=== PATIENT | female | born 1990 | race Caucasian/White ===

== ENCOUNTER 2016-08-29 00:42 | Emergency (ER) | payer OTHER ==
[~2016-08-29] VITALS: Ht 165.1 cm; Wt 54.5 kg
[~2016-08-29 00:42] MED LIST: BENADRYL25 M2; CLEOCIN HCL300 MG PO; FERROUS SU325 MG/TAB PO; LAMICTAL 25MG T25 MG PO; LAMICTAL200 MG PO; LOVENOX 4040 MG/0.4 SQ; MOTRIN 600600 MG/TAB PO; NEURONTIN300 MG/CAP PO; NORCO 325 MG-51 TAB PO; NORCO 325 MG-7.1 TAB PO; PERCOCET 325 MG1 TA2 PO; TRILEPTAL600 MG PO; ULTRAM 50MG TAB50 MG PO; VIMPAT100 MG PO; ZANTAC 7575 MG PO; ZOFRAN 4MG T4 MG/TAB PO; ZOFRAN8 MG PO; ZOLOFT50 MG PO
[2016-08-29 00:46] VITALS: TEMP 97.8
[2016-08-29 01:32] LABS: BASO % 0.2 % (0.0-2.0); EOS % 0.3 % (0-4.0); GRAN # 6.7 (1.4-6.5); GRAN % 71.8 % (42.2-75.2); HEMATOCRIT 37.5 % (37.0-47.0); HEMOGLOBIN 13.2 g/dl (12.5-16.0); LYMPH # 1.8 (1.2-3.4); LYMPH % 19.5 % (20.0-51.0); MEAN CELL VOLUME 90 fl (80.0-100.0); MEAN CORPUSCULAR HEMOGLOBIN 32 pg (27.0-31.0); MEAN CORPUSCULAR HGB CONC 35 g/dl (33.0-37.0); MEAN PLATELET VOLUME 11.1 fl (7.4-10.4); MONO # 0.8 (0.1-0.6); PLATELET COUNT 145 K/mm3 (130-400); RED BLOOD COUNT 4.18 M/mm3 (4.10-5.30); REDCELL DISTRIBUTION WIDTH-CV 11.7 % (11.5-14.5); WHITE BLOOD COUNT 9.4 K/mm3 (4.8-10.8)
[2016-08-29 01:39] LABS: PH 7 (5-8); URINE APPEARANCE Cloudy; URINE BILIRUBIN Negative (NEGATIVE); URINE BLOOD Negative (NEGATIVE); URINE COLOR Yellow; URINE GLUCOSE Negative (NEGATIVE); URINE KETONE Negative (NEGATIVE); URINE UROBILINOGEN Negative (NEGATIVE)
[2016-08-29 01:44] LABS: ADJUSTED CALCIUM 9.5 mg/dL (8.4-10.2); ALBUMIN 4.2 gm/dL (3.5-5.0); BILIRUBIN,TOTAL 0.6 mg/dL (0.0-1.0); CALCIUM 9.7 mg/dL (8.4-10.2); CREATININE, serum 0.72 mg/dL (0.52-1.25); POTASSIUM 3.5 mmol/L (3.4-5.0); TOTAL PROTEIN 7.5 gm/dL (6.4-8.2)
[2016-08-29] MEDS ORDERED: ULTRAM 50MG TAB50 MG PO (02:21)
[2016-08-29] MEDS ORDERED: ZOFRAN8 MG PO (02:21)
[2016-08-29 02:27] VITALS: BP 115/75; PULSE 94
[2016-08-29 02:32] LABS: SQUAMOUS EPITHELIAL 0-2 /hpf; URINE BACTERIA Rare /hpf; URINE RBC 0-2 /hpf; URINE WBC 0-2 /hpf
== END 2016-08-29 02:48 | disposition home or self-care (01) ==
LOC: COL.ER 00:42
PROVIDERS: Emergency Medicine
DX: R10.11 Right upper quadrant pain (principal); R10.32 Left lower quadrant pain; R10.12 Left upper quadrant pain; R10.31 Right lower quadrant pain
CPT/HCPCS: J1885; J2270; J2405; J7030; Q9967

== ENCOUNTER 2016-12-17 21:35 | Emergency (ER) | payer OTHER ==
[~2016-12-17] VITALS: Ht 165.1 cm; Wt 52.7 kg
[2016-12-17 21:41] VITALS: TEMP 98.1
[2016-12-17] MEDS ORDERED: ASPIRIN 32325 MG/TAB PO (21:53)
[2016-12-17 22:14] LABS: BASO % 0.4 % (0.0-2.0); EOS # 0.1 (0.0-0.7); EOS % 1.1 % (0-4.0); GRAN # 5.3 (1.4-6.5); GRAN % 62.5 % (42.2-75.2); HEMATOCRIT 39.1 % (37.0-47.0); HEMOGLOBIN 13.6 g/dl (12.5-16.0); LYMPH # 2.5 (1.2-3.4); LYMPH % 29.2 % (20.0-51.0); MEAN CELL VOLUME 92 fl (80.0-100.0); MEAN CORPUSCULAR HEMOGLOBIN 32 pg (27.0-31.0); MEAN CORPUSCULAR HGB CONC 35 g/dl (33.0-37.0); MEAN PLATELET VOLUME 11.3 fl (7.4-10.4); MONO # 0.6 (0.1-0.6); MONO % 6.6 % (1.7-9.3); PLATELET COUNT 141 K/mm3 (130-400); RED BLOOD COUNT 4.25 M/mm3 (4.10-5.30); REDCELL DISTRIBUTION WIDTH-CV 12.5 % (11.5-14.5); WHITE BLOOD COUNT 8.4 K/mm3 (4.8-10.8)
[2016-12-17 22:20] LABS: INR 1.1 (0.8-3.0); PROTHROMBIN TIME 12.5 SECONDS (9.7-12.8)
[2016-12-17 22:23] LABS: ALANINE AMINOTRANSFERASE 24 U/L (9-52); ALBUMIN 4.5 gm/dL (3.5-5.0); ALKALINE PHOSPHATASE 62 U/L (50-136); ANION GAP 16 mmol/L (7-16); BILIRUBIN,TOTAL 0.7 mg/dL (0.0-1.0); BLOOD UREA NITROGEN 12 mg/dL (7-17); CALCIUM 9.4 mg/dL (8.4-10.2); CARBON DIOXIDE 21 mmol/L (22-30); CHLORIDE 105 mmol/L (98-107); CREATININE, serum 0.68 mg/dL (0.52-1.25); GLUCOSE 82 mg/dL (74-106); POTASSIUM 3.5 mmol/L (3.4-5.0); SODIUM 142 mmol/L (137-145); TOTAL PROTEIN 7.5 gm/dL (6.4-8.2)
[2016-12-17 22:24] LABS: C-REACTIVE PROTEIN < 0.5 mg/dL (0.0-0.9)
[2016-12-17 22:37] LABS: PROLACTIN 17.4 ng/mL (3.0-18.6)
[2016-12-17 23:12] VITALS: BP 104/78; PULSE 80
== END 2016-12-17 23:15 | disposition home or self-care (01) ==
LOC: COL.ER 21:35
PROVIDERS: Family Medicine
DX: G40.909 Epilepsy, unspecified, not intractable, without status epilepticus (principal); F17.290 Nicotine dependence, other tobacco product, uncomplicated; K21.9 Gastro-esophageal reflux disease without esophagitis; Z86.73 Personal history of transient ischemic attack (TIA), and cerebral infarction without residual deficits; Z79.82 Long term (current) use of aspirin
CPT/HCPCS: J7030

== ENCOUNTER 2017-03-14 15:33 | Emergency (ER) | payer SELFPAY ==
[~2017-03-14] VITALS: Ht 165.1 cm; Wt 52.3 kg
[~2017-03-14 15:33] MED LIST changes: +ASPIRIN 32325 MG/TAB PO
[2017-03-14 15:37] VITALS: BP 127/65; PULSE 90; TEMP 98.9
== END 2017-03-14 16:33 | disposition home or self-care (01) ==
LOC: COL.ER 15:33
DX: S63.501A Unspecified sprain of right wrist, initial encounter (principal); F17.290 Nicotine dependence, other tobacco product, uncomplicated; Z79.82 Long term (current) use of aspirin; W20.8XXA Other cause of strike by thrown, projected or falling object, initial encounter; Y92.69 Other specified industrial and construction area as the place of occurrence of the external cause

== ENCOUNTER 2017-03-17 19:24 | Emergency (ER) | payer SELFPAY ==
[~2017-03-17] VITALS: Ht 165.1 cm; Wt 52.3 kg
[2017-03-17 19:26] VITALS: BP 111/67; PULSE 84; TEMP 98.5
== END 2017-03-17 21:21 | disposition home or self-care (01) ==
LOC: COL.ER 19:24
DX: S69.91XA Unspecified injury of right wrist, hand and finger(s), initial encounter (principal); F17.210 Nicotine dependence, cigarettes, uncomplicated; Z79.82 Long term (current) use of aspirin; W23.0XXA Caught, crushed, jammed, or pinched between moving objects, initial encounter; Y99.0 Civilian activity done for income or pay
CPT/HCPCS: J2550

== ENCOUNTER 2017-04-01 14:05 | Emergency (ER) | payer SELFPAY ==
[~2017-04-01] VITALS: Ht 165.1 cm; Wt 52.3 kg
[2017-04-01 14:15] VITALS: BP 110/61; PULSE 87; TEMP 97
[2017-04-01] MEDS ORDERED: ILOTYCIN5 MG/GM OP (15:09)
[2017-04-01] MEDS ORDERED: CLEOCIN HCL300 MG PO (15:09)
[2017-04-01 15:23] LABS: BASO % 0.3 % (0.0-2.0); EOS # 0.1 (0.0-0.7); EOS % 0.8 % (0-4.0); GRAN # 5.1 (1.4-6.5); GRAN % 71.1 % (42.2-75.2); HEMATOCRIT 39.8 % (37.0-47.0); HEMOGLOBIN 13.9 g/dl (12.5-16.0); LYMPH # 1.6 (1.2-3.4); LYMPH % 21.5 % (20.0-51.0); MEAN CELL VOLUME 93 fl (80.0-100.0); MEAN CORPUSCULAR HEMOGLOBIN 33 pg (27.0-31.0); MEAN CORPUSCULAR HGB CONC 35 g/dl (33.0-37.0); MEAN PLATELET VOLUME 11.4 fl (7.4-10.4); MONO # 0.4 (0.1-0.6); PLATELET COUNT 122 K/mm3 (130-400); RED BLOOD COUNT 4.26 M/mm3 (4.10-5.30); REDCELL DISTRIBUTION WIDTH-CV 11.9 % (11.5-14.5); WHITE BLOOD COUNT 7.2 K/mm3 (4.8-10.8)
[2017-04-01 15:36] LABS: ANION GAP 9 mmol/L (7-16); BLOOD UREA NITROGEN 10 mg/dL (7-17); CALCIUM 9.8 mg/dL (8.4-10.2); CARBON DIOXIDE 25 mmol/L (22-30); CHLORIDE 105 mmol/L (98-107); CREATININE, serum 0.71 mg/dL (0.52-1.25); GLUCOSE 95 mg/dL (74-106); POTASSIUM 4.3 mmol/L (3.4-5.0); SODIUM 139 mmol/L (137-145)
[2017-04-01 15:37] LABS: C-REACTIVE PROTEIN < 0.5 mg/dL (0.0-0.9)
[2017-04-01] MEDS ORDERED: POLYMYXIN B/TRIMETH OD (16:02)
[2017-04-01] MEDS ORDERED: CEPHALEXIN500 M1 PO (16:02)
== END 2017-04-01 16:14 | disposition home or self-care (01) ==
LOC: COL.ER 14:05
PROVIDERS: Physician Assistant
DX: H00.011 Hordeolum externum right upper eyelid (principal); F17.210 Nicotine dependence, cigarettes, uncomplicated; Z79.82 Long term (current) use of aspirin

== ENCOUNTER 2017-04-07 17:27 | Emergency (ER) | payer SELFPAY ==
[~2017-04-07] VITALS: Ht 165.1 cm; Wt 50.0 kg
[~2017-04-07 17:27] MED LIST changes: +CEPHALEXIN500 M1 PO; +ILOTYCIN5 MG/GM OP; +POLYMYXIN B/TRIMETH OD
[2017-04-07 17:29] VITALS: TEMP 98.7
[2017-04-07 18:24] LABS: PH 5 (5-8); SQUAMOUS EPITHELIAL 0-2 /hpf; URINE APPEARANCE Hazy; URINE BACTERIA Rare /hpf; URINE BILIRUBIN Negative (NEGATIVE); URINE BLOOD Negative (NEGATIVE); URINE COLOR Yellow; URINE GLUCOSE Negative (NEGATIVE); URINE KETONE Negative (NEGATIVE); URINE RBC 0-2 /hpf; URINE UROBILINOGEN Negative (NEGATIVE); URINE WBC 0-2 /hpf
[2017-04-07 18:33] LABS: BASO % 0.2 % (0.0-2.0); EOS % 0.5 % (0-4.0); GRAN # 4.1 (1.4-6.5); GRAN % 71.8 % (42.2-75.2); HEMATOCRIT 38.1 % (37.0-47.0); HEMOGLOBIN 13.5 g/dl (12.5-16.0); LYMPH # 1.1 (1.2-3.4); LYMPH % 19.9 % (20.0-51.0); MEAN CELL VOLUME 92 fl (80.0-100.0); MEAN CORPUSCULAR HEMOGLOBIN 33 pg (27.0-31.0); MEAN CORPUSCULAR HGB CONC 35 g/dl (33.0-37.0); MEAN PLATELET VOLUME 10.9 fl (7.4-10.4); MONO # 0.4 (0.1-0.6); MONO % 7.2 % (1.7-9.3); PLATELET COUNT 117 K/mm3 (130-400); RED BLOOD COUNT 4.15 M/mm3 (4.10-5.30); REDCELL DISTRIBUTION WIDTH-CV 11.7 % (11.5-14.5); WHITE BLOOD COUNT 5.7 K/mm3 (4.8-10.8)
[2017-04-07 18:46] LABS: ALBUMIN 4.1 gm/dL (3.5-5.0); BILIRUBIN,TOTAL 0.5 mg/dL (0.0-1.0); CALCIUM 9.1 mg/dL (8.4-10.2); CREATININE, serum 0.7 mg/dL (0.52-1.25); POTASSIUM 3.8 mmol/L (3.4-5.0); TOTAL PROTEIN 6.9 gm/dL (6.4-8.2)
[2017-04-07 19:03] LABS: PROLACTIN 21.4 ng/mL (3.0-18.6)
[2017-04-07 19:31] VITALS: BP 104/59; PULSE 88
== END 2017-04-07 19:32 | disposition home or self-care (01) ==
LOC: COL.ER 17:27
PROVIDERS: Emergency Medicine
DX: G40.909 Epilepsy, unspecified, not intractable, without status epilepticus (principal); D68.2 Hereditary deficiency of other clotting factors; F17.290 Nicotine dependence, other tobacco product, uncomplicated; Z86.69 Personal history of other diseases of the nervous system and sense organs; Z98.890 Other specified postprocedural states
CPT/HCPCS: J7030

== ENCOUNTER 2017-04-17 14:49 | Outpatient (RCR) | payer OTHER | END 2017-06-18 | LOC: WSOH | DX: S66.911A Strain of unspecified muscle, fascia and tendon at wrist and hand level, right hand, initial encounter (principal); W22.8XXA Striking against or struck by other objects, initial encounter; Y99.0 Civilian activity done for income or pay; Z88.6 Allergy status to analgesic agent; Z79.82 Long term (current) use of aspirin ==

== ENCOUNTER 2017-08-16 23:13 | Emergency (ER) | payer SELFPAY ==
[~2017-08-16] VITALS: Ht 165.1 cm; Wt 52.3 kg
[2017-08-16 23:16] VITALS: BP 112/63; TEMP 98.9
[2017-08-16] MEDS ORDERED: ASPIRIN 32325 MG/TAB PO (23:19)
[2017-08-17 00:02] LABS: INFLUENZA A NEGATIVE; INFLUENZA B NEGATIVE
[2017-08-17 00:05] LABS: COLLECTION METHOD CLEAN CATCH
[2017-08-17 00:11] LABS: MUCOUS Present /lpf; PH 5 (5-8); URINE APPEARANCE Hazy; URINE BACTERIA Rare /hpf; URINE BILIRUBIN Negative (NEGATIVE); URINE BLOOD Negative (NEGATIVE); URINE COLOR Yellow; URINE GLUCOSE Negative (NEGATIVE); URINE KETONE 1+ (NEGATIVE); URINE LEUKOCYTE ESTERASE Negative (NEGATIVE); URINE NITRATE Negative (NEGATIVE); URINE PROTEIN(semi-quant) Negative (NEGATIVE); URINE RBC 0-2 /hpf
[2017-08-17] MEDS ORDERED: PHENERGAN 25 TA25 MG PO (01:45)
[2017-08-17 02:07] VITALS: PULSE 76
== END 2017-08-17 02:05 | disposition home or self-care (01) ==
LOC: COL.ER 23:13
PROVIDERS: Emergency Medicine
DX: J11.1 Influenza due to unidentified influenza virus with other respiratory manifestations (principal); F17.200 Nicotine dependence, unspecified, uncomplicated; D68.2 Hereditary deficiency of other clotting factors; G40.909 Epilepsy, unspecified, not intractable, without status epilepticus; Z79.82 Long term (current) use of aspirin; Z88.1 Allergy status to other antibiotic agents; Z88.8 Allergy status to other drugs, medicaments and biological substances
CPT/HCPCS: J1885; J2550; J7030

== ENCOUNTER 2017-10-31 01:19 | Emergency (ER) | payer OTHER ==
[~2017-10-31] VITALS: Ht 165.1 cm; Wt 50.0 kg
[~2017-10-31 01:19] MED LIST changes: +PHENERGAN 25 TA25 MG PO
[2017-10-31 01:24] VITALS: BP 125/72; PULSE 99; TEMP 98
== END 2017-10-31 02:25 | disposition home or self-care (01) ==
LOC: COL.ER 01:19
DX: S50.02XA Contusion of left elbow, initial encounter (principal); F17.210 Nicotine dependence, cigarettes, uncomplicated; Z79.82 Long term (current) use of aspirin; W19.XXXA Unspecified fall, initial encounter

== ENCOUNTER 2017-11-14 02:03 | Emergency (ER) | payer OTHER ==
[2017-11-14 02:08] VITALS: TEMP 98.1
[2017-11-14 02:33] LABS: BASO % 0.4 % (0.0-2.0); EOS # 0.1 (0.0-0.7); EOS % 1.4 % (0-4.0); GRAN # 4.6 (1.4-6.5); GRAN % 59.1 % (42.2-75.2); HEMATOCRIT 37.8 % (37.0-47.0); HEMOGLOBIN 13.2 g/dl (12.5-16.0); LYMPH # 2.4 (1.2-3.4); MEAN CELL VOLUME 92 fl (80.0-100.0); MEAN CORPUSCULAR HEMOGLOBIN 32 pg (27.0-31.0); MEAN CORPUSCULAR HGB CONC 35 g/dl (33.0-37.0); MEAN PLATELET VOLUME 11.1 fl (7.4-10.4); MONO # 0.6 (0.1-0.6); PLATELET COUNT 139 K/mm3 (130-400); RED BLOOD COUNT 4.09 M/mm3 (4.10-5.30); REDCELL DISTRIBUTION WIDTH-CV 11.9 % (11.5-14.5)
[2017-11-14] MEDS ORDERED: PHENERGAN 25 TA25 MG PO (02:38)
[2017-11-14 02:51] LABS: CALCIUM 8.8 mg/dL (8.4-10.2); CREATININE, serum 0.59 mg/dL (0.52-1.25)
[2017-11-14 02:52] LABS: COLLECTION METHOD CLEAN CATCH
[2017-11-14 03:00] LABS: MUCOUS Present /lpf; PH 5 (5-8); SQUAMOUS EPITHELIAL 0-2 /hpf; URINE APPEARANCE Hazy; URINE BACTERIA None Seen /hpf; URINE BILIRUBIN Negative (NEGATIVE); URINE BLOOD 2+ (NEGATIVE); URINE COLOR Yellow; URINE GLUCOSE Negative (NEGATIVE); URINE KETONE Trace (NEGATIVE); URINE LEUKOCYTE ESTERASE Trace (NEGATIVE); URINE NITRATE Negative (NEGATIVE); URINE PROTEIN(semi-quant) 1+ (NEGATIVE); URINE UROBILINOGEN >=4.0 mg/dL (NEGATIVE)
[2017-11-14] MEDS ORDERED: MACROBID 1100 MG/CAP PO (04:14)
[2017-11-14 04:38] VITALS: BP 100/65; PULSE 64
== END 2017-11-14 04:45 | disposition home or self-care (01) ==
LOC: COL.ER 02:03
PROVIDERS: Physician Assistant
DX: S09.90XA Unspecified injury of head, initial encounter (principal); G40.409 Other generalized epilepsy and epileptic syndromes, not intractable, without status epilepticus; N39.0 Urinary tract infection, site not specified; Z79.82 Long term (current) use of aspirin; W01.198A Fall on same level from slipping, tripping and stumbling with subsequent striking against other object, initial encounter
CPT/HCPCS: J2060; J2550; J7030

== ENCOUNTER 2017-12-05 13:04 | Emergency (ER) | payer SELFPAY ==
[~2017-12-05] VITALS: Ht 165.1 cm; Wt 55.0 kg
[~2017-12-05 13:04] MED LIST changes: +MACROBID 1100 MG/CAP PO
[2017-12-05 13:05] VITALS: TEMP 98.5
[2017-12-05] MEDS ORDERED: NEURONTIN300 MG/CAP PO (13:13)
[2017-12-05 13:26] LABS: BASO % 0.3 % (0.0-2.0); EOS % 0.7 % (0-4.0); GRAN # 4.2 (1.4-6.5); HEMOGLOBIN 12.5 g/dl (12.5-16.0); LYMPH # 1.4 (1.2-3.4); LYMPH % 23.4 % (20.0-51.0); MEAN CELL VOLUME 93 fl (80.0-100.0); MEAN CORPUSCULAR HEMOGLOBIN 32 pg (27.0-31.0); MEAN CORPUSCULAR HGB CONC 35 g/dl (33.0-37.0); MEAN PLATELET VOLUME 11.1 fl (7.4-10.4); MONO # 0.4 (0.1-0.6); MONO % 6.4 % (1.7-9.3); PLATELET COUNT 116 K/mm3 (130-400)
[2017-12-05 13:32] LABS: HEMATOCRIT 36.2 % (37.0-47.0)
[2017-12-05 13:35] LABS: ALBUMIN 3.7 gm/dL (3.5-5.0); BILIRUBIN,TOTAL 0.4 mg/dL (0.0-1.0); CALCIUM 8.7 mg/dL (8.4-10.2); CREATININE, serum 0.67 mg/dL (0.52-1.25); POTASSIUM 3.9 mmol/L (3.4-5.0); TOTAL PROTEIN 6.7 gm/dL (6.4-8.2)
[2017-12-05 13:47] LABS: COLLECTION METHOD CLEAN CATCH
[2017-12-05 13:51] LABS: PROLACTIN 13.5 ng/mL (3.0-18.6)
[2017-12-05 13:55] LABS: MUCOUS Present /lpf; PH 5 (5-8); URINE APPEARANCE Hazy; URINE BACTERIA None Seen /hpf; URINE BILIRUBIN Negative (NEGATIVE); URINE BLOOD Negative (NEGATIVE); URINE COLOR Yellow; URINE GLUCOSE Negative (NEGATIVE); URINE KETONE Negative (NEGATIVE); URINE LEUKOCYTE ESTERASE Negative (NEGATIVE); URINE NITRATE Negative (NEGATIVE); URINE PROTEIN(semi-quant) Negative (NEGATIVE)
[2017-12-05 14:30] VITALS: BP 106/70; PULSE 81
[2017-12-05] MEDS ORDERED: KEPPRA 500MG500 MG PO (14:50)
== END 2017-12-05 14:59 | disposition home or self-care (01) ==
LOC: COL.ER 13:04
PROVIDERS: Emergency Medicine
DX: G40.909 Epilepsy, unspecified, not intractable, without status epilepticus (principal); F17.290 Nicotine dependence, other tobacco product, uncomplicated; Z90.89 Acquired absence of other organs; Z79.82 Long term (current) use of aspirin
CPT/HCPCS: J7030

== ENCOUNTER 2018-02-12 22:52 | Emergency (ER) | payer SELFPAY ==
[~2018-02-12] VITALS: Ht 152.4 cm; Wt 54.5 kg
[~2018-02-12 22:52] MED LIST changes: +KEPPRA 500MG500 MG PO
[2018-02-12 22:56] VITALS: TEMP 98.7
[2018-02-12] MEDS ORDERED: NEURONTIN300 MG/CAP PO (23:25)
[2018-02-12 23:30] LABS: COLLECTION METHOD CLEAN CATCH
[2018-02-12 23:31] LABS: BASO % 0.5 % (0.0-2.0); EOS # 0.1 (0.0-0.7); EOS % 1.7 % (0-4.0); GRAN # 3.3 (1.4-6.5); GRAN % 54.9 % (42.2-75.2); HEMATOCRIT 37.6 % (37.0-47.0); HEMOGLOBIN 13.3 g/dl (12.5-16.0); LYMPH # 2.1 (1.2-3.4); LYMPH % 34.5 % (20.0-51.0); MEAN CELL VOLUME 92 fl (80.0-100.0); MEAN CORPUSCULAR HEMOGLOBIN 33 pg (27.0-31.0); MEAN CORPUSCULAR HGB CONC 35 g/dl (33.0-37.0); MEAN PLATELET VOLUME 10.6 fl (7.4-10.4); MONO # 0.5 (0.1-0.6); MONO % 8.2 % (1.7-9.3); PLATELET COUNT 130 K/mm3 (130-400); RED BLOOD COUNT 4.07 M/mm3 (4.10-5.30); REDCELL DISTRIBUTION WIDTH-CV 11.6 % (11.5-14.5)
[2018-02-12 23:41] LABS: PH 7 (5-8); SQUAMOUS EPITHELIAL 0-2 /hpf; URINE APPEARANCE Clear; URINE BACTERIA Rare /hpf; URINE BILIRUBIN Negative (NEGATIVE); URINE BLOOD Negative (NEGATIVE); URINE COLOR Yellow; URINE GLUCOSE Negative (NEGATIVE); URINE KETONE Negative (NEGATIVE); URINE LEUKOCYTE ESTERASE Negative (NEGATIVE); URINE NITRATE Negative (NEGATIVE); URINE PROTEIN(semi-quant) Negative (NEGATIVE); URINE RBC 0-2 /hpf
[2018-02-12 23:42] LABS: MUCOUS Present /lpf; URINE CALCIUM OXALATE CRYSTAL Present /hpf
[2018-02-12 23:44] LABS: BILIRUBIN,TOTAL 0.4 mg/dL (0.0-1.0); CREATININE, serum 0.66 mg/dL (0.52-1.25); POTASSIUM 3.5 mmol/L (3.4-5.0); TOTAL PROTEIN 6.8 gm/dL (6.4-8.2)
[2018-02-13] LABS: PROLACTIN 25.7 ng/mL (3.0-18.6)
[2018-02-13] MEDS ORDERED: NEURONTIN300 MG/CAP PO (01:52)
[2018-02-13 02:45] VITALS: BP 100/64; PULSE 75
[2018-02-14] MEDS ORDERED: ASPIRIN 32325 MG/TAB PO (12:05)
[2018-02-14] MEDS ORDERED: TYLENOL 500MG500 MG PO (12:05)
[2018-02-14] MEDS ORDERED: ULTRAM 50MG TAB50 MG PO (12:42)
== END 2018-02-13 02:49 | disposition home or self-care (01) ==
LOC: COL.ER 22:52
PROVIDERS: Emergency Medicine
DX: G40.909 Epilepsy, unspecified, not intractable, without status epilepticus (principal)
CPT/HCPCS: J1885; J7030

== ENCOUNTER 2018-02-14 11:54 | Emergency (ER) | payer SELFPAY ==
[~2018-02-14] VITALS: Ht 165.1 cm; Wt 54.5 kg
[2018-02-14] MEDS ORDERED: ASPIRIN 32325 MG/TAB PO (12:05)
[2018-02-14] MEDS ORDERED: TYLENOL 500MG500 MG PO (12:05)
[2018-02-14 12:26] LABS: COLLECTION METHOD CLEAN CATCH
[2018-02-14 12:30] LABS: ALBUMIN 4.1 gm/dL (3.5-5.0); BILIRUBIN,TOTAL 0.6 mg/dL (0.0-1.0); CALCIUM 9.4 mg/dL (8.4-10.2); CREATININE, serum 0.72 mg/dL (0.52-1.25); POTASSIUM 3.8 mmol/L (3.4-5.0); TOTAL PROTEIN 6.9 gm/dL (6.4-8.2)
[2018-02-14 12:38] LABS: MUCOUS Present /lpf; PH 5 (5-8); URINE APPEARANCE Hazy; URINE BACTERIA None Seen /hpf; URINE BILIRUBIN Negative (NEGATIVE); URINE BLOOD Negative (NEGATIVE); URINE COLOR Amber; URINE GLUCOSE Negative (NEGATIVE); URINE KETONE 1+ (NEGATIVE); URINE LEUKOCYTE ESTERASE Negative (NEGATIVE); URINE NITRATE Negative (NEGATIVE); URINE PROTEIN(semi-quant) Negative (NEGATIVE); URINE RBC 0-2 /hpf; URINE UROBILINOGEN >=4.0 mg/dL (NEGATIVE)
[2018-02-14] MEDS ORDERED: ULTRAM 50MG TAB50 MG PO (12:42)
[2018-02-14 12:44] LABS: BASO % 0.4 % (0.0-2.0); EOS % 0.4 % (0-4.0); GRAN # 4.1 (1.4-6.5); GRAN % 72.2 % (42.2-75.2); HEMATOCRIT 38.2 % (37.0-47.0); HEMOGLOBIN 13.2 g/dl (12.5-16.0); LYMPH # 1.1 (1.2-3.4); LYMPH % 18.9 % (20.0-51.0); MEAN CELL VOLUME 94 fl (80.0-100.0); MEAN CORPUSCULAR HEMOGLOBIN 32 pg (27.0-31.0); MEAN CORPUSCULAR HGB CONC 35 g/dl (33.0-37.0); MEAN PLATELET VOLUME 11.3 fl (7.4-10.4); MONO # 0.4 (0.1-0.6); PLATELET COUNT 131 K/mm3 (130-400); RED BLOOD COUNT 4.07 M/mm3 (4.10-5.30); REDCELL DISTRIBUTION WIDTH-CV 11.5 % (11.5-14.5)
[2018-02-14 12:46] LABS: PROLACTIN 23.2 ng/mL (3.0-18.6)
[2018-02-14 13:28] VITALS: BP 110/78; PULSE 80; TEMP 97.3
== END 2018-02-14 13:29 | disposition home or self-care (01) ==
LOC: COL.ER 11:54
DX: R56.9 Unspecified convulsions (principal); Z90.89 Acquired absence of other organs; Z87.891 Personal history of nicotine dependence; Z88.8 Allergy status to other drugs, medicaments and biological substances; Z79.82 Long term (current) use of aspirin
CPT/HCPCS: J2550

== ENCOUNTER 2018-03-02 20:34 | Emergency (ER) | payer SELFPAY ==
[~2018-03-02] VITALS: Ht 165.2 cm; Wt 54.5 kg
[~2018-03-02 20:34] MED LIST changes: +TYLENOL 500MG500 MG PO
[2018-03-02 20:40] VITALS: TEMP 99
[2018-03-02 21:20] LABS: BASO % 0.3 % (0.0-2.0); EOS # 0.1 (0.0-0.7); EOS % 1.3 % (0-4.0); GRAN # 3.9 (1.4-6.5); GRAN % 60.4 % (42.2-75.2); HEMOGLOBIN 12.4 g/dl (12.5-16.0); LYMPH # 1.9 (1.2-3.4); LYMPH % 29.7 % (20.0-51.0); MEAN CELL VOLUME 92 fl (80.0-100.0); MEAN CORPUSCULAR HEMOGLOBIN 33 pg (27.0-31.0); MEAN CORPUSCULAR HGB CONC 35 g/dl (33.0-37.0); MEAN PLATELET VOLUME 10.7 fl (7.4-10.4); MONO # 0.5 (0.1-0.6); PLATELET COUNT 134 K/mm3 (130-400); RED BLOOD COUNT 3.82 M/mm3 (4.10-5.30); REDCELL DISTRIBUTION WIDTH-CV 11.7 % (11.5-14.5)
[2018-03-02 21:30] LABS: HEMATOCRIT 35.2 % (37.0-47.0)
[2018-03-02 21:36] LABS: ALANINE AMINOTRANSFERASE 30 U/L (9-52); ALBUMIN 4.1 gm/dL (3.5-5.0); ALKALINE PHOSPHATASE 45 U/L (50-136); ANION GAP 11 mmol/L (7-16); AST,SGOT 32 U/L (15-37); BILIRUBIN,TOTAL 0.3 mg/dL (0.0-1.0); BLOOD UREA NITROGEN 10 mg/dL (7-17); CALCIUM 8.8 mg/dL (8.4-10.2); CARBON DIOXIDE 25 mmol/L (22-30); CHLORIDE 103 mmol/L (98-107); CREATINE KINASE 119 U/L (30-135); CREATININE, serum 0.63 mg/dL (0.52-1.25); GLUCOSE 90 mg/dL (74-106); POTASSIUM 3.3 mmol/L (3.4-5.0); SODIUM 139 mmol/L (137-145); TOTAL PROTEIN 6.8 gm/dL (6.4-8.2)
[2018-03-02 21:50] LABS: TROPONIN-I < 0.012 ng/mL (0.000-0.034)
[2018-03-02] MEDS ORDERED: MEDROL 4MG DOSPA4 MG PO (22:14)
[2018-03-02 22:15] VITALS: BP 103/72; PULSE 74
== END 2018-03-02 22:27 | disposition home or self-care (01) ==
LOC: COL.ER 20:34
PROVIDERS: Emergency Medicine
DX: R07.81 Pleurodynia (principal); F17.210 Nicotine dependence, cigarettes, uncomplicated; Z90.89 Acquired absence of other organs; Z88.1 Allergy status to other antibiotic agents; Z79.82 Long term (current) use of aspirin
CPT/HCPCS: J1885; J2060; J7030

== ENCOUNTER 2018-05-02 22:28 | Emergency (ER) | payer SELFPAY ==
[~2018-05-02] VITALS: Ht 165.1 cm; Wt 56.8 kg
[~2018-05-02 22:28] MED LIST changes: +MEDROL 4MG DOSPA4 MG PO
[2018-05-02 22:30] VITALS: TEMP 98.4
[2018-05-02 23:31] LABS: BASO % 0.4 % (0.0-2.0); EOS # 0.1 (0.0-0.7); EOS % 1.4 % (0-4.0); GRAN # 3.1 (1.4-6.5); GRAN % 55.7 % (42.2-75.2); HEMOGLOBIN 13.4 g/dl (12.5-16.0); LYMPH # 1.9 (1.2-3.4); LYMPH % 34.6 % (20.0-51.0); MEAN CELL VOLUME 95 fl (80.0-100.0); MEAN CORPUSCULAR HEMOGLOBIN 33 pg (27.0-31.0); MEAN CORPUSCULAR HGB CONC 34 g/dl (33.0-37.0); MONO # 0.4 (0.1-0.6); MONO % 7.7 % (1.7-9.3); PLATELET COUNT 150 K/mm3 (130-400); RED BLOOD COUNT 4.12 M/mm3 (4.10-5.30); REDCELL DISTRIBUTION WIDTH-CV 11.7 % (11.5-14.5)
[2018-05-02 23:40] LABS: ALBUMIN 4.3 gm/dL (3.5-5.0); BILIRUBIN,TOTAL 0.3 mg/dL (0.0-1.0); CALCIUM 9.3 mg/dL (8.4-10.2); CREATININE, serum 0.64 mg/dL (0.52-1.25); POTASSIUM 3.6 mmol/L (3.4-5.0); TOTAL PROTEIN 7.5 gm/dL (6.4-8.2)
[2018-05-02] MEDS ORDERED: NEURONTIN300 MG/CAP PO (23:41)
[2018-05-03 00:40] VITALS: BP 112/67; PULSE 80
== END 2018-05-03 00:40 | disposition home or self-care (01) ==
LOC: COL.ER 22:28
PROVIDERS: Emergency Medicine
DX: R56.9 Unspecified convulsions (principal); Z79.82 Long term (current) use of aspirin
CPT/HCPCS: J1885; J7030

== ENCOUNTER 2018-05-15 22:21 | Emergency (ER) | payer SELFPAY ==
[~2018-05-15] VITALS: Ht 165.1 cm; Wt 54.5 kg
[2018-05-15 22:22] VITALS: TEMP 98.1
[2018-05-15 22:46] LABS: BASO % 0.1 % (0.0-2.0); EOS # 0.1 (0.0-0.7); EOS % 1.4 % (0-4.0); GRAN # 5.1 (1.4-6.5); GRAN % 63.7 % (42.2-75.2); HEMATOCRIT 39.5 % (37.0-47.0); HEMOGLOBIN 13.6 g/dl (12.5-16.0); LYMPH # 2.1 (1.2-3.4); LYMPH % 26.7 % (20.0-51.0); MEAN CELL VOLUME 96 fl (80.0-100.0); MEAN CORPUSCULAR HEMOGLOBIN 33 pg (27.0-31.0); MEAN CORPUSCULAR HGB CONC 34 g/dl (33.0-37.0); MEAN PLATELET VOLUME 11.1 fl (7.4-10.4); MONO # 0.6 (0.1-0.6); MONO % 7.7 % (1.7-9.3); PLATELET COUNT 129 K/mm3 (130-400); RED BLOOD COUNT 4.13 M/mm3 (4.10-5.30); REDCELL DISTRIBUTION WIDTH-CV 11.9 % (11.5-14.5)
[2018-05-15 22:58] LABS: ALANINE AMINOTRANSFERASE 32 U/L (9-52); ALKALINE PHOSPHATASE 50 U/L (50-136); ANION GAP 6 mmol/L (7-16); AST,SGOT 22 U/L (15-37); BILIRUBIN,TOTAL 0.3 mg/dL (0.0-1.0); BLOOD UREA NITROGEN 9 mg/dL (7-17); CALCIUM 9.1 mg/dL (8.4-10.2); CARBON DIOXIDE 25 mmol/L (22-30); CHLORIDE 108 mmol/L (98-107); CREATININE, serum 0.59 mg/dL (0.52-1.25); GLUCOSE 75 mg/dL (74-106); POTASSIUM 3.7 mmol/L (3.4-5.0); SODIUM 139 mmol/L (137-145)
[2018-05-15 23:04] LABS: INR 1.1 (0.8-3.0); PROTHROMBIN TIME 12.1 SECONDS (9.7-12.8)
[2018-05-15 23:06] LABS: PARTIAL THROMBOPLASTIN TIME 36.7 SECONDS (26.0-37.0)
[2018-05-15 23:10] LABS: TROPONIN-I < 0.012 ng/mL (0.000-0.034)
[2018-05-15 23:26] LABS: D-DIMER < 200.00 ng/mLDDu (200-230)
[2018-05-15 23:57] VITALS: BP 107/68; PULSE 78
== END 2018-05-16 | disposition home or self-care (01) ==
LOC: COL.ER 22:21
PROVIDERS: Family Medicine
DX: R07.89 Other chest pain (principal); G40.909 Epilepsy, unspecified, not intractable, without status epilepticus; Z79.82 Long term (current) use of aspirin; Z79.899 Other long term (current) drug therapy
CPT/HCPCS: J1885

== ENCOUNTER 2018-06-22 22:47 | Emergency (ER) | payer SELFPAY ==
[~2018-06-22] VITALS: Ht 165.1 cm; Wt 52.3 kg
[2018-06-22 22:49] VITALS: BP 106/56; TEMP 99.3
[2018-06-22] MEDS ORDERED: K-DUR 10 MEQ T10 MEQ PO (23:02)
[2018-06-22] MEDS ORDERED: NEXIUM 40MG40 MG PO (23:03)
[2018-06-22 23:30] VITALS: PULSE 87
== END 2018-06-22 23:34 | disposition home or self-care (01) ==
LOC: COL.ER 22:47
DX: K08.89 Other specified disorders of teeth and supporting structures (principal); K21.9 Gastro-esophageal reflux disease without esophagitis; F41.9 Anxiety disorder, unspecified; F31.9 Bipolar disorder, unspecified; F17.210 Nicotine dependence, cigarettes, uncomplicated

== ENCOUNTER 2018-08-24 20:23 | Emergency (ER) | payer SELFPAY ==
[~2018-08-24] VITALS: Ht 165.1 cm; Wt 54.5 kg
[~2018-08-24 20:23] MED LIST changes: +K-DUR 10 MEQ T10 MEQ PO; +NEXIUM 40MG40 MG PO
[2018-08-24 20:25] VITALS: BP 119/75
[2018-08-24] MEDS ORDERED: NEURONTIN300 MG/CAP PO (20:53)
[2018-08-24 21:01] LABS: COLLECTION METHOD CLEAN CATCH
[2018-08-24 21:12] LABS: MUCOUS Present /lpf; PH 7 (5-8); SQUAMOUS EPITHELIAL 0-2 /hpf; URINE APPEARANCE Clear; URINE BACTERIA None Seen /hpf; URINE BILIRUBIN Negative (NEGATIVE); URINE BLOOD 2+ (NEGATIVE); URINE COLOR Yellow; URINE GLUCOSE Negative (NEGATIVE); URINE KETONE Negative (NEGATIVE); URINE LEUKOCYTE ESTERASE Trace (NEGATIVE); URINE NITRATE Negative (NEGATIVE); URINE PROTEIN(semi-quant) Negative (NEGATIVE); URINE RBC 0-2 /hpf
[2018-08-24 21:52] LABS: BASO % 0.3 % (0.0-2.0); EOS # 0.1 (0.0-0.7); GRAN % 84.1 % (42.2-75.2); HEMOGLOBIN 12.1 g/dl (12.5-16.0); LYMPH # 0.5 (1.2-3.4); MEAN CELL VOLUME 93 fl (80.0-100.0); MEAN CORPUSCULAR HEMOGLOBIN 32 pg (27.0-31.0); MEAN CORPUSCULAR HGB CONC 35 g/dl (33.0-37.0); MEAN PLATELET VOLUME 10.8 fl (7.4-10.4); MONO # 0.3 (0.1-0.6); MONO % 5.4 % (1.7-9.3); PLATELET COUNT 122 K/mm3 (130-400); RED BLOOD COUNT 3.74 M/mm3 (4.10-5.30); REDCELL DISTRIBUTION WIDTH-CV 11.7 % (11.5-14.5)
[2018-08-24 21:54] LABS: HEMATOCRIT 34.6 % (37.0-47.0)
[2018-08-24 22:08] LABS: ALANINE AMINOTRANSFERASE 26 U/L (9-52); ALBUMIN 3.9 gm/dL (3.5-5.0); ALKALINE PHOSPHATASE 57 U/L (50-136); ANION GAP 7 mmol/L (7-16); AST,SGOT 28 U/L (15-37); BILIRUBIN,TOTAL 0.3 mg/dL (0.0-1.0); BLOOD UREA NITROGEN 11 mg/dL (7-17); CALCIUM 9.1 mg/dL (8.4-10.2); CARBON DIOXIDE 25 mmol/L (22-30); CHLORIDE 103 mmol/L (98-107); CREATININE, serum 0.63 mg/dL (0.52-1.25); GLUCOSE 79 mg/dL (74-106); POTASSIUM 3.6 mmol/L (3.4-5.0); SODIUM 136 mmol/L (137-145); TOTAL PROTEIN 6.6 gm/dL (6.4-8.2)
[2018-08-24 22:09] LABS: C-REACTIVE PROTEIN < 0.5 mg/dL (0.0-0.9)
[2018-08-24] MEDS ORDERED: TAMIFLU 75MG75 MG PO (22:18)
[2018-08-24] MEDS ORDERED: CEPHALEXIN500 M1 PO (22:23)
[2018-08-24 22:38] VITALS: PULSE 100; TEMP 99.4
== END 2018-08-24 22:39 | disposition home or self-care (01) ==
LOC: COL.ER 20:23
PROVIDERS: Emergency Medicine
DX: J11.1 Influenza due to unidentified influenza virus with other respiratory manifestations (principal)
CPT/HCPCS: J7030

== ENCOUNTER 2018-10-28 22:03 | Emergency (ER) | payer SELFPAY ==
[~2018-10-28] VITALS: Ht 165.1 cm; Wt 54.5 kg
[~2018-10-28 22:03] MED LIST changes: +TAMIFLU 75MG75 MG PO
[2018-10-28 22:13] VITALS: BP 120/61; TEMP 99.1
[2018-10-29 01:20] VITALS: PULSE 79
== END 2018-10-29 01:20 | disposition home or self-care (01) ==
LOC: COL.ER 22:03
DX: M25.512 Pain in left shoulder (principal); F17.210 Nicotine dependence, cigarettes, uncomplicated; F41.9 Anxiety disorder, unspecified; F32.9 Major depressive disorder, single episode, unspecified
CPT/HCPCS: J1885

== ENCOUNTER 2019-04-17 17:50 | Emergency (ER) | payer SELFPAY ==
[~2019-04-17] VITALS: Ht 165.1 cm; Wt 56.8 kg
[2019-04-17 18:03] VITALS: TEMP 98.5
[2019-04-17 18:56] LABS: COLLECTION METHOD CLEAN CATCH
[2019-04-17 19:04] LABS: PH 7 (5-8); SQUAMOUS EPITHELIAL 0-2 /hpf; URINE APPEARANCE Clear; URINE BACTERIA None Seen /hpf; URINE BILIRUBIN Negative (NEGATIVE); URINE BLOOD Negative (NEGATIVE); URINE COLOR Yellow; URINE GLUCOSE Negative (NEGATIVE); URINE KETONE Negative (NEGATIVE); URINE LEUKOCYTE ESTERASE Negative (NEGATIVE); URINE NITRATE Negative (NEGATIVE); URINE PROTEIN(semi-quant) Negative (NEGATIVE); URINE RBC 0-2 /hpf; URINE UROBILINOGEN Negative (NEGATIVE)
[2019-04-17 19:43] VITALS: BP 118/74; PULSE 75
== END 2019-04-17 19:43 | disposition home or self-care (01) ==
LOC: COL.ER 17:50
PROVIDERS: Emergency Medicine
DX: R56.9 Unspecified convulsions (principal)

== ENCOUNTER 2019-05-05 13:05 | Emergency (ER) | payer SELFPAY ==
[~2019-05-05] VITALS: Ht 165.1 cm; Wt 57.7 kg
[2019-05-05 13:08] VITALS: BP 133/82; TEMP 98.6
[2019-05-05] MEDS ORDERED: NEURONTIN300 MG/CAP PO (13:11)
[2019-05-05 13:47] LABS: BASO % 0.2 % (0.0-2.0); EOS % 0.4 % (0-4.0); GRAN # 3.3 (1.4-6.5); GRAN % 65.6 % (42.2-75.2); LYMPH # 1.4 (1.2-3.4); LYMPH % 27.3 % (20.0-51.0); MEAN CELL VOLUME 94 fl (80.0-100.0); MEAN CORPUSCULAR HEMOGLOBIN 33 pg (27.0-31.0); MEAN CORPUSCULAR HGB CONC 35 g/dl (33.0-37.0); MEAN PLATELET VOLUME 11.3 fl (7.4-10.4); MONO # 0.3 (0.1-0.6); MONO % 6.3 % (1.7-9.3); PLATELET COUNT 123 K/mm3 (130-400); RED BLOOD COUNT 4.25 M/mm3 (4.10-5.30); REDCELL DISTRIBUTION WIDTH-CV 11.5 % (11.5-14.5)
[2019-05-05 14:01] LABS: ALBUMIN 4.5 gm/dL (3.5-5.0); BILIRUBIN,TOTAL 0.6 mg/dL (0.0-1.0); CALCIUM 9.2 mg/dL (8.4-10.2); CREATININE, serum 0.73 (0.52-1.25); POTASSIUM 3.8 mmol/L (3.4-5.0); TOTAL PROTEIN 7.4 gm/dL (6.4-8.2)
[2019-05-05 15:29] VITALS: PULSE 77
== END 2019-05-05 15:29 | disposition home or self-care (01) ==
LOC: COL.ER 13:05
PROVIDERS: Emergency Medicine
DX: R00.2 Palpitations (principal); Z90.49 Acquired absence of other specified parts of digestive tract

== ENCOUNTER 2019-05-06 22:10 | Emergency (ER) | payer SELFPAY ==
[~2019-05-06] VITALS: Ht 165.1 cm; Wt 57.7 kg
[2019-05-06 22:15] VITALS: TEMP 96.9
[2019-05-06 22:44] LABS: BASO % 0.3 % (0.0-2.0); EOS # 0.1 (0.0-0.7); EOS % 0.7 % (0-4.0); GRAN # 3.6 (1.4-6.5); GRAN % 54.3 % (42.2-75.2); HEMATOCRIT 37.4 % (37.0-47.0); HEMOGLOBIN 12.9 g/dl (12.5-16.0); LYMPH # 2.4 (1.2-3.4); LYMPH % 36.4 % (20.0-51.0); MEAN CELL VOLUME 94 fl (80.0-100.0); MEAN CORPUSCULAR HEMOGLOBIN 33 pg (27.0-31.0); MEAN CORPUSCULAR HGB CONC 35 g/dl (33.0-37.0); MEAN PLATELET VOLUME 11.2 fl (7.4-10.4); MONO # 0.6 (0.1-0.6); MONO % 8.2 % (1.7-9.3); PLATELET COUNT 135 K/mm3 (130-400); RED BLOOD COUNT 3.97 M/mm3 (4.10-5.30); REDCELL DISTRIBUTION WIDTH-CV 11.5 % (11.5-14.5)
[2019-05-06 22:58] LABS: ALANINE AMINOTRANSFERASE 19 U/L (9-52); ALBUMIN 4.5 gm/dL (3.5-5.0); ALKALINE PHOSPHATASE 50 U/L (50-136); ANION GAP 9 mmol/L (7-16); AST,SGOT 25 U/L (15-37); BILIRUBIN,TOTAL 0.2 mg/dL (0.0-1.0); BLOOD UREA NITROGEN 13 mg/dL (7-17); CALCIUM 9.3 mg/dL (8.4-10.2); CARBON DIOXIDE 26 mmol/L (22-30); CHLORIDE 105 mmol/L (98-107); GLUCOSE 74 mg/dL (74-106); POTASSIUM 3.8 mmol/L (3.4-5.0); SODIUM 140 mmol/L (137-145); TOTAL PROTEIN 7.2 gm/dL (6.4-8.2)
[2019-05-06 22:59] LABS: C-REACTIVE PROTEIN < 0.5 mg/dL (0.0-0.9)
[2019-05-06 23:24] LABS: TROPONIN-I < 0.012 ng/mL (0.000-0.035)
[2019-05-07 00:05] VITALS: BP 115/82; PULSE 80
== END 2019-05-07 00:05 | disposition home or self-care (01) ==
LOC: COL.ER 22:10
PROVIDERS: Emergency Medicine
DX: R07.89 Other chest pain (principal)
CPT/HCPCS: J7030

== ENCOUNTER 2019-08-11 19:34 | Emergency (ER) | payer SELFPAY ==
[~2019-08-11] VITALS: Ht 165.1 cm; Wt 56.8 kg
[2019-08-11 19:36] VITALS: TEMP 98.1
[2019-08-11] MEDS ORDERED: ASPIRIN 32325 MG/TAB PO (20:02)
[2019-08-11 20:33] LABS: COLLECTION METHOD CLEAN CATCH
[2019-08-11 20:43] LABS: BASO % 0.5 % (0.0-2.0); EOS # 0.1 (0.0-0.7); EOS % 1.1 % (0-4.0); GRAN # 3.6 (1.4-6.5); GRAN % 54.2 % (42.2-75.2); HEMATOCRIT 40.8 % (37.0-47.0); HEMOGLOBIN 14.3 g/dl (12.5-16.0); LYMPH # 2.4 (1.2-3.4); LYMPH % 36.3 % (20.0-51.0); MEAN CELL VOLUME 94 fl (80.0-100.0); MEAN CORPUSCULAR HEMOGLOBIN 33 pg (27.0-31.0); MEAN CORPUSCULAR HGB CONC 35 g/dl (33.0-37.0); MEAN PLATELET VOLUME 11.1 fl (7.4-10.4); MONO # 0.5 (0.1-0.6); MONO % 7.6 % (1.7-9.3); PLATELET COUNT 148 K/mm3 (130-400); RED BLOOD COUNT 4.35 M/mm3 (4.10-5.30); REDCELL DISTRIBUTION WIDTH-CV 11.5 % (11.5-14.5)
[2019-08-11 20:44] LABS: PH 8 (5-8); SQUAMOUS EPITHELIAL 0-2 /hpf; URINE APPEARANCE Clear; URINE BACTERIA None Seen /hpf; URINE BILIRUBIN Negative (NEGATIVE); URINE BLOOD Negative (NEGATIVE); URINE COLOR Straw; URINE GLUCOSE Negative (NEGATIVE); URINE KETONE Negative (NEGATIVE); URINE LEUKOCYTE ESTERASE Negative (NEGATIVE); URINE NITRATE Negative (NEGATIVE); URINE PROTEIN(semi-quant) Negative (NEGATIVE); URINE RBC 0-2 /hpf; URINE UROBILINOGEN Negative (NEGATIVE)
[2019-08-11 20:45] LABS: CALCIUM 9.6 mg/dL (8.4-10.2); CREATININE, serum 0.68 (0.52-1.25); POTASSIUM 3.6 mmol/L (3.4-5.0)
[2019-08-11 21:40] VITALS: BP 107/68; PULSE 78
== END 2019-08-11 21:40 | disposition home or self-care (01) ==
LOC: COL.ER 19:34
PROVIDERS: Emergency Medicine
DX: R00.2 Palpitations (principal); R07.89 Other chest pain; K21.9 Gastro-esophageal reflux disease without esophagitis; F17.210 Nicotine dependence, cigarettes, uncomplicated; Z79.82 Long term (current) use of aspirin

== ENCOUNTER 2019-09-15 19:09 | Emergency (ER) | payer SELFPAY ==
[~2019-09-15] VITALS: Ht 160 cm; Wt 54.5 kg
[2019-09-15 19:12] VITALS: BP 112/77; TEMP 97.8
[2019-09-15 19:31] LABS: BASO % 0.4 % (0.0-2.0); EOS # 0.1 (0.0-0.7); EOS % 0.9 % (0-4.0); GRAN # 4.3 (1.4-6.5); GRAN % 64.9 % (42.2-75.2); HEMOGLOBIN 14.1 g/dl (12.5-16.0); LYMPH # 1.8 (1.2-3.4); LYMPH % 26.4 % (20.0-51.0); MEAN CELL VOLUME 94 fl (80.0-100.0); MEAN CORPUSCULAR HEMOGLOBIN 33 pg (27.0-31.0); MEAN CORPUSCULAR HGB CONC 35 g/dl (33.0-37.0); MEAN PLATELET VOLUME 11.8 fl (7.4-10.4); MONO # 0.5 (0.1-0.6); MONO % 7.3 % (1.7-9.3); PLATELET COUNT 166 K/mm3 (130-400); RED BLOOD COUNT 4.28 M/mm3 (4.10-5.30); REDCELL DISTRIBUTION WIDTH-CV 11.8 % (11.5-14.5)
[2019-09-15 20:25] LABS: ALANINE AMINOTRANSFERASE 25 U/L (9-52); ALBUMIN 3.9 gm/dL (3.5-5.0); ALKALINE PHOSPHATASE 57 U/L (50-136); ANION GAP 8 mmol/L (7-16); AST,SGOT 25 U/L (15-37); BILIRUBIN,TOTAL 0.3 mg/dL (0.0-1.0); BLOOD UREA NITROGEN 10 mg/dL (7-17); CALCIUM 8.3 mg/dL (8.4-10.2); CARBON DIOXIDE 25 mmol/L (22-30); CHLORIDE 107 mmol/L (98-107); CREATININE, serum 0.65 (0.52-1.25); GLUCOSE 105 mg/dL (74-106); POTASSIUM 3.7 mmol/L (3.4-5.0); SODIUM 139 mmol/L (137-145); TOTAL PROTEIN 6.5 gm/dL (6.4-8.2)
[2019-09-15 20:28] LABS: C-REACTIVE PROTEIN < 0.5 mg/dL (0.0-0.9)
[2019-09-15 20:39] LABS: PROLACTIN 24.4 ng/mL (3.0-18.6)
[2019-09-15 21:39] VITALS: PULSE 76
== END 2019-09-15 21:39 | disposition home or self-care (01) ==
LOC: COL.ER 19:09
PROVIDERS: Emergency Medicine
DX: S09.90XA Unspecified injury of head, initial encounter (principal); R56.9 Unspecified convulsions; Z79.82 Long term (current) use of aspirin
CPT/HCPCS: J7030

== ENCOUNTER 2020-01-25 19:52 | Emergency (ER) | payer SELFPAY ==
[2020-01-25 19:53] VITALS: TEMP 98
[2020-01-25 20:07] LABS: BASO % 0.4 % (0.0-2.0); EOS # 0.1 (0.0-0.7); EOS % 1.2 % (0-4.0); GRAN # 4.3 (1.4-6.5); GRAN % 55.3 % (42.2-75.2); HEMATOCRIT 40.1 % (37.0-47.0); HEMOGLOBIN 13.6 g/dl (12.5-16.0); LYMPH # 2.6 (1.2-3.4); LYMPH % 33.9 % (20.0-51.0); MEAN CELL VOLUME 95 fl (80.0-100.0); MEAN CORPUSCULAR HEMOGLOBIN 32 pg (27.0-31.0); MEAN CORPUSCULAR HGB CONC 34 g/dl (33.0-37.0); MONO # 0.7 (0.1-0.6); MONO % 8.9 % (1.7-9.3); PLATELET COUNT 159 K/mm3 (130-400); RED BLOOD COUNT 4.24 M/mm3 (4.10-5.30); REDCELL DISTRIBUTION WIDTH-CV 11.8 % (11.5-14.5)
[2020-01-25 20:14] LABS: ALBUMIN 4.9 gm/dL (3.5-5.0); BILIRUBIN,TOTAL 0.5 mg/dL (0.0-1.0); CALCIUM 9.9 mg/dL (8.4-10.2); CREATININE, serum 0.77 (0.52-1.25); POTASSIUM 3.6 mmol/L (3.4-5.0)
[2020-01-25 20:30] LABS: PROLACTIN 23.3 ng/mL (3.0-18.6)
[2020-01-25 21:48] VITALS: BP 101/74; PULSE 76
== END 2020-01-25 21:48 | disposition home or self-care (01) ==
LOC: COL.ER 19:52
PROVIDERS: Emergency Medicine
DX: F44.5 Conversion disorder with seizures or convulsions (principal); G80.9 Cerebral palsy, unspecified; F17.210 Nicotine dependence, cigarettes, uncomplicated; Z79.82 Long term (current) use of aspirin
CPT/HCPCS: J2060; J7030

== ENCOUNTER 2020-02-12 17:33 | Emergency (ER) | payer SELFPAY ==
[~2020-02-12] VITALS: Ht 165.1 cm; Wt 56.8 kg
[2020-02-12 18:15] LABS: COLLECTION METHOD CLEAN CATCH
[2020-02-12 18:19] LABS: BASO % 0.3 % (0.0-2.0); EOS # 0.1 (0.0-0.7); EOS % 0.7 % (0-4.0); GRAN # 4.3 (1.4-6.5); GRAN % 64.1 % (42.2-75.2); HEMOGLOBIN 12.5 g/dl (12.5-16.0); LYMPH # 1.9 (1.2-3.4); LYMPH % 27.7 % (20.0-51.0); MEAN CELL VOLUME 93 fl (80.0-100.0); MEAN CORPUSCULAR HEMOGLOBIN 33 pg (27.0-31.0); MEAN CORPUSCULAR HGB CONC 35 g/dl (33.0-37.0); MEAN PLATELET VOLUME 11.2 fl (7.4-10.4); MONO # 0.5 (0.1-0.6); MONO % 7.1 % (1.7-9.3); PLATELET COUNT 142 K/mm3 (130-400); RED BLOOD COUNT 3.81 M/mm3 (4.10-5.30); REDCELL DISTRIBUTION WIDTH-CV 11.4 % (11.5-14.5)
[2020-02-12 18:20] LABS: HEMATOCRIT 35.5 % (37.0-47.0)
[2020-02-12 18:21] LABS: MUCOUS Present /lpf; PH 8 (5-8); SQUAMOUS EPITHELIAL 0-2 /hpf; URINE APPEARANCE Hazy; URINE BACTERIA Rare /hpf; URINE BILIRUBIN Negative (NEGATIVE); URINE BLOOD Negative (NEGATIVE); URINE COLOR Yellow; URINE GLUCOSE Negative (NEGATIVE); URINE KETONE Negative (NEGATIVE); URINE LEUKOCYTE ESTERASE Negative (NEGATIVE); URINE NITRATE Negative (NEGATIVE); URINE PROTEIN(semi-quant) Negative (NEGATIVE); URINE RBC 0-2 /hpf; URINE UROBILINOGEN Negative (NEGATIVE)
[2020-02-12 18:31] LABS: ALANINE AMINOTRANSFERASE 20 U/L (4-34); ALBUMIN 4.2 gm/dL (3.5-5.0); ALKALINE PHOSPHATASE 46 U/L (50-136); ANION GAP 7 mmol/L (7-16); AST,SGOT 27 U/L (15-37); BILIRUBIN,TOTAL 0.3 mg/dL (0.0-1.0); BLOOD UREA NITROGEN 14 mg/dL (7-17); CALCIUM 9.5 mg/dL (8.4-10.2); CARBON DIOXIDE 24 mmol/L (22-30); CHLORIDE 105 mmol/L (98-107); CREATININE, serum 0.71 (0.52-1.25); GLUCOSE 104 mg/dL (74-106); LIPASE 71 U/L (23-300); POTASSIUM 3.8 mmol/L (3.4-5.0); SODIUM 136 mmol/L (137-145); TOTAL PROTEIN 7.1 gm/dL (6.4-8.2)
[2020-02-12 18:44] LABS: C-REACTIVE PROTEIN < 0.5 mg/dL (0.0-0.9)
[2020-02-12 19:35] VITALS: BP 116/78; PULSE 84; TEMP 98.2
== END 2020-02-12 19:45 | disposition home or self-care (01) ==
LOC: COL.ER 17:33
PROVIDERS: Physician Assistant
DX: R10.31 Right lower quadrant pain (principal); R11.0 Nausea; F17.210 Nicotine dependence, cigarettes, uncomplicated; F44.5 Conversion disorder with seizures or convulsions; Z32.02 Encounter for pregnancy test, result negative; Z79.82 Long term (current) use of aspirin; Z88.6 Allergy status to analgesic agent; Z88.4 Allergy status to anesthetic agent
CPT/HCPCS: J2270; J2550; J7030

== ENCOUNTER 2020-03-15 20:02 | Emergency (ER) | payer SELFPAY ==
[~2020-03-15] VITALS: Ht 165.1 cm; Wt 54.5 kg
[2020-03-15 20:33] VITALS: BP 113/76; PULSE 94; TEMP 98.1
== END 2020-03-15 22:33 | disposition left against medical advice (07) ==
LOC: COL.ER 20:02
DX: M25.512 Pain in left shoulder (principal); Z53.21 Procedure and treatment not carried out due to patient leaving prior to being seen by health care provider

== ENCOUNTER 2020-03-19 20:51 | Emergency (ER) | payer SELFPAY ==
[~2020-03-19] VITALS: Ht 165.1 cm; Wt 54.5 kg
[2020-03-19 20:58] VITALS: TEMP 98.6
[2020-03-19 21:28] LABS: BASO % 0.3 % (0.0-2.0); EOS # 0.1 (0.0-0.7); EOS % 0.9 % (0-4.0); GRAN # 3.7 (1.4-6.5); GRAN % 62.1 % (42.2-75.2); HEMATOCRIT 37.7 % (37.0-47.0); LYMPH # 1.7 (1.2-3.4); LYMPH % 29.3 % (20.0-51.0); MEAN CELL VOLUME 94 fl (80.0-100.0); MEAN CORPUSCULAR HEMOGLOBIN 32 pg (27.0-31.0); MEAN CORPUSCULAR HGB CONC 35 g/dl (33.0-37.0); MEAN PLATELET VOLUME 11.5 fl (7.4-10.4); MONO # 0.4 (0.1-0.6); MONO % 7.2 % (1.7-9.3); PLATELET COUNT 128 K/mm3 (130-400); RED BLOOD COUNT 4.02 M/mm3 (4.10-5.30); REDCELL DISTRIBUTION WIDTH-CV 11.7 % (11.5-14.5)
[2020-03-19 21:36] LABS: ALANINE AMINOTRANSFERASE 17 U/L (4-34); ALBUMIN 4.3 gm/dL (3.5-5.0); ALKALINE PHOSPHATASE 55 U/L (50-136); ANION GAP 8 mmol/L (7-16); AST,SGOT 25 U/L (15-37); BILIRUBIN,TOTAL 0.4 mg/dL (0.0-1.0); BLOOD UREA NITROGEN 14 mg/dL (7-17); CALCIUM 9.2 mg/dL (8.4-10.2); CARBON DIOXIDE 27 mmol/L (22-30); CHLORIDE 104 mmol/L (98-107); CREATININE, serum 0.74 (0.52-1.25); GLUCOSE 86 mg/dL (74-106); SODIUM 139 mmol/L (137-145); TOTAL PROTEIN 7.2 gm/dL (6.4-8.2)
[2020-03-19 21:48] LABS: TROPONIN-I < 0.012 ng/mL (0.000-0.035)
[2020-03-19 21:52] LABS: PROLACTIN 31.4 ng/mL (3.0-18.6)
[2020-03-19 23:43] VITALS: BP 111/71; PULSE 89
== END 2020-03-19 22:30 | disposition home or self-care (01) ==
LOC: COL.ER 20:51
PROVIDERS: Family Medicine
DX: R07.89 Other chest pain (principal); F41.9 Anxiety disorder, unspecified; R06.02 Shortness of breath; Z88.6 Allergy status to analgesic agent; Z88.4 Allergy status to anesthetic agent; Z79.82 Long term (current) use of aspirin
CPT/HCPCS: J1790; J2060

== ENCOUNTER 2020-06-13 20:33 | Emergency (ER) | payer SELFPAY ==
[~2020-06-13] VITALS: Ht 165.1 cm; Wt 54.5 kg
[2020-06-13 21:31] LABS: BASO % 0.4 % (0.0-2.0); EOS # 0.1 (0.0-0.7); EOS % 1.2 % (0-4.0); GRAN # 2.6 (1.4-6.5); HEMOGLOBIN 12.6 g/dl (12.5-16.0); LYMPH # 1.9 (1.2-3.4); LYMPH % 37.9 % (20.0-51.0); MEAN CELL VOLUME 94 fl (80.0-100.0); MEAN CORPUSCULAR HEMOGLOBIN 32 pg (27.0-31.0); MEAN CORPUSCULAR HGB CONC 34 g/dl (33.0-37.0); MEAN PLATELET VOLUME 10.9 fl (7.4-10.4); MONO # 0.4 (0.1-0.6); MONO % 8.1 % (1.7-9.3); PLATELET COUNT 140 K/mm3 (130-400); RED BLOOD COUNT 3.92 M/mm3 (4.10-5.30)
[2020-06-13 21:32] LABS: HEMATOCRIT 36.7 % (37.0-47.0)
[2020-06-13 21:39] LABS: INR 1.1 (0.8-3.0); PROTHROMBIN TIME 11.9 SECONDS (9.7-12.8)
[2020-06-13 21:40] LABS: ALANINE AMINOTRANSFERASE 16 U/L (4-34); ALBUMIN 4.5 gm/dL (3.5-5.0); ALKALINE PHOSPHATASE 58 U/L (50-136); ANION GAP 8 mmol/L (7-16); AST,SGOT 25 U/L (15-37); BILIRUBIN,TOTAL 0.3 mg/dL (0.0-1.0); BLOOD UREA NITROGEN 9 mg/dL (7-17); CARBON DIOXIDE 28 mmol/L (22-30); CHLORIDE 102 mmol/L (98-107); CREATININE, serum 0.71 (0.52-1.25); GLUCOSE 86 mg/dL (74-106); POTASSIUM 3.7 mmol/L (3.4-5.0); SODIUM 138 mmol/L (137-145); TOTAL PROTEIN 7.1 gm/dL (6.4-8.2)
[2020-06-13 21:56] LABS: TROPONIN-I < 0.012 ng/mL (0.000-0.035)
[2020-06-13 23:22] LABS: COLLECTION METHOD CLEAN CATCH
[2020-06-13 23:28] LABS: MUCOUS Present /lpf; PH 6 (5-8); SQUAMOUS EPITHELIAL 0-2 /hpf; URINE APPEARANCE Hazy; URINE BACTERIA None Seen /hpf; URINE BILIRUBIN Negative (NEGATIVE); URINE BLOOD 1+ (NEGATIVE); URINE COLOR Yellow; URINE GLUCOSE Negative (NEGATIVE); URINE KETONE 1+ (NEGATIVE); URINE LEUKOCYTE ESTERASE Negative (NEGATIVE); URINE NITRATE Negative (NEGATIVE); URINE PROTEIN(semi-quant) Negative (NEGATIVE); URINE RBC 0-2 /hpf; URINE UROBILINOGEN Negative (NEGATIVE)
[2020-06-14 00:01] VITALS: BP 108/64; PULSE 82; TEMP 98.6
== END 2020-06-14 00:07 | disposition home or self-care (01) ==
LOC: COL.ER 20:33
PROVIDERS: Nurse Practitioner Primary Care
DX: R07.9 Chest pain, unspecified (principal); F31.9 Bipolar disorder, unspecified; F41.9 Anxiety disorder, unspecified; G80.9 Cerebral palsy, unspecified; F17.210 Nicotine dependence, cigarettes, uncomplicated; Z88.1 Allergy status to other antibiotic agents; Z88.8 Allergy status to other drugs, medicaments and biological substances; Z32.02 Encounter for pregnancy test, result negative; Z79.82 Long term (current) use of aspirin

== ENCOUNTER 2020-08-06 11:11 | Emergency (ER) | payer SELFPAY ==
[~2020-08-06] VITALS: Ht 165.1 cm; Wt 59.1 kg
[2020-08-06 11:21] VITALS: TEMP 98.3
[2020-08-06 14:22] VITALS: BP 130/89; PULSE 90
== END 2020-08-06 13:00 | disposition home or self-care (01) ==
LOC: COL.ER 11:11
DX: Z20.822 Contact with and (suspected) exposure to COVID-19 (principal); R56.9 Unspecified convulsions; Z88.6 Allergy status to analgesic agent; Z88.8 Allergy status to other drugs, medicaments and biological substances; Z79.82 Long term (current) use of aspirin

== ENCOUNTER 2020-08-09 14:01 | Emergency (ER) | payer SELFPAY ==
[~2020-08-09] VITALS: Ht 165.1 cm; Wt 59.1 kg
[2020-08-09 14:11] VITALS: TEMP 97.7
[2020-08-09 15:43] VITALS: BP 104/67; PULSE 70
== END 2020-08-09 15:45 | disposition home or self-care (01) ==
LOC: COL.ER 14:01
DX: B34.9 Viral infection, unspecified (principal); R56.9 Unspecified convulsions; F17.200 Nicotine dependence, unspecified, uncomplicated; Z20.822 Contact with and (suspected) exposure to COVID-19; Z88.6 Allergy status to analgesic agent; Z88.8 Allergy status to other drugs, medicaments and biological substances; Z79.82 Long term (current) use of aspirin

== ENCOUNTER 2020-08-28 17:30 | Emergency (ER) | payer SELFPAY ==
[2020-08-28 17:45] VITALS: BP 105/76; PULSE 93; TEMP 97.4
== END 2020-08-28 17:50 | disposition home or self-care (01) ==
LOC: COL.ER 17:30
DX: R25.1 Tremor, unspecified (principal); B34.9 Viral infection, unspecified; G40.909 Epilepsy, unspecified, not intractable, without status epilepticus; Z88.6 Allergy status to analgesic agent; Z88.8 Allergy status to other drugs, medicaments and biological substances; Z79.82 Long term (current) use of aspirin